=== PATIENT | male | born 1965 | race Two or more races ===

== ENCOUNTER 2021-11-30 03:48 | Inpatient (IN) | payer OTHER ==
[~2021-11-30] VITALS: Ht 165.1 cm; Wt 72.7 kg
[2021-11-30 04:10] LABS: COVID AG,FIA SOURCE NASOPHARYNGEAL
[2021-11-30 04:20] LABS: AMPHET/METH SCREEN,URINE POSITIVE (NEGATIVE); BARBITURATE SCREEN, URINE NEGATIVE (NEGATIVE); BENZODIAZEPINES SCREEN,URINE NEGATIVE (NEGATIVE); CANNABINOID SCREEN,URINE NEGATIVE (NEGATIVE); COCAINE SCREEN,URINE NEGATIVE (NEGATIVE); METHADONE SCREEN, URINE NEGATIVE (NEGATIVE); OPIATE SCREEN,URINE NEGATIVE (NEGATIVE)
[2021-11-30 04:23] LABS: PHENCYCLIDINE SCREEN,URINE NEGATIVE (NEGATIVE)
[2021-11-30] MEDS ORDERED: CloNIDine HCL 0.1 MG TABLET PO ONE (04:30)
[2021-11-30 04:38] LABS: EOSINOPHILS % (AUTO) 5.4 % (1.0-6.0); HEMATOCRIT 41.3 % (41-53); HEMOGLOBIN 13.8 g/dL (13.5-17.5); LYMPHOCYTES # (AUTO) 4.2 K/uL (1.0-4.8); LYMPHOCYTES % (AUTO) 40.3 % (22.0-44.0); MEAN CORPUSCULAR HGB CONC 33.3 G/dL (31.0-37.0); MEAN CORPUSCULAR VOLUME 81 fL (80-100); MONOCYTES # (AUTO) 0.5 K/uL (0.1-1.0); MONOCYTES % (AUTO) 4.5 % (2.0-9.0); NEUTROPHILS # (AUTO) 5.1 K/uL (1.8-7.7); NEUTROPHILS % (AUTO) 48.8 % (40.0-70.0); PLATELET COUNT (AUTO) 283 K/uL (150-450); RED BLOOD CELL COUNT(AUTO) 5.09 MIL/uL (4.50-5.90); RED CELL DISTRIBUTION WIDTH 14.7 % (11.5-14.5)
[2021-11-30] MEDS ORDERED: ACETAMINOPHEN 325 MG TABLET PO PRN (04:45)
[2021-11-30] MEDS ORDERED: ONDANSETRON HCL 4 MG/2 ML VIAL IVP PRN (04:45)
[2021-11-30] MEDS ORDERED: LORazepam 0.5 MG TABLET PO PRN (04:45)
[2021-11-30 04:48] LABS: ANION GAP 8 mmol/L (8-16); CALCIUM, TOTAL 9.1 mg/dL (8.8-10.5); CARBON DIOXIDE 32 mmol/L (22-29); CHLORIDE 105 mmol/L (98-107); CREATININE 1.08 mg/dL (0.60-1.30); GLUCOSE,RANDOM 91 mg/dL (70-110); POTASSIUM 4.4 mmol/L (3.5-5.1); SODIUM SERUM 145 mmol/L (136-145); UREA NITROGEN, BLOOD 16 mg/dL (7-18)
[2021-11-30 04:49] LABS: GLOMERULAR FILTR. RATE CALC > 60 mL/min (>60)
[2021-11-30 04:54] LABS: ALANINE AMINOTRANSFERASE 24 U/L (12-78); ALBUMIN 3.5 g/dL (3.4-5.0); ALKALINE PHOSPHATASE 76 U/L (46-116); ASPARTATE AMINOTRANSFERASE 14 U/L (15-37); BILIRUBIN,TOTAL 0.5 mg/dL (0.1-1.0); TOTAL PROTEIN, SERUM 7.1 g/dL (6.4-8.2)
[2021-11-30] MEDS ORDERED: HydrALAZINE HCL 20 MG/ML VIAL IVP ONE (06:00)
[2021-11-30 08:09] VITALS: BP 177/93
[2021-11-30] MEDS: HEPARIN SODIUM,PORCINE 5,000 UNITS/ML VIAL SQ SCH ×3 (09:12→23:45)
[2021-11-30] MEDS ORDERED: DICYCLOMINE HCL 10 MG CAPSULE PO PRN (15:00)
[2021-11-30] MEDS ORDERED: PROMETHAZINE HCL 25 MG TABLET PO PRN (15:00)
[2021-11-30] MEDS ORDERED: MAG HYDROX/AL HYDROX/SIMETH ES 30 ML SUSPENSION UDCUP PO PRN ×2 (15:00)
[2021-11-30] MEDS ORDERED: LOPERAMIDE HCL 2 MG/15 ML SUSPENSION UDCUP PO PRN (15:00)
[2021-11-30] MEDS ORDERED: IBUPROFEN 600 MG TABLET PO PRN ×2 (15:00)
[2021-11-30 15:39] VITALS: BP 160/99
[2021-11-30] MEDS: SODIUM CHLORIDE 0.45% 1,000 ML IV SCH (15:50)
[2021-11-30] MEDS: CloNIDine HCL 0.1 MG TABLET PO SCH ×2 (16:02→21:03)
[2021-11-30] MEDS: ACETAMINOPHEN 325 MG TABLET PO PRN (18:29)
[2021-11-30 20:32] VITALS: BP 171/114
[2021-11-30] MEDS: TraZODone HCL 50 MG TABLET PO PRN (21:03)
[2021-11-30] MEDS: LORazepam 1 MG TABLET PO PRN (21:08)
[2021-11-30] MEDS: BACLOFEN 10 MG TABLET PO PRN (21:09)
[2021-11-30] MEDS: HydrOXYzine PAMOATE 50 MG CAPSULE PO PRN (23:48)
[2021-12-01 02:01] VITALS: BP 156/105
[2021-12-01] MEDS: SODIUM CHLORIDE 0.45% 1,000 ML IV SCH ×2 (05:17→19:47)
[2021-12-01] MEDS: CloNIDine HCL 0.1 MG TABLET PO SCH ×4 (05:17→20:54)
[2021-12-01 05:22] VITALS: BP 166/112
[2021-12-01] MEDS: HEPARIN SODIUM,PORCINE 5,000 UNITS/ML VIAL SQ SCH ×2 (08:27→16:35)
[2021-12-01] MEDS: CloNIDine HCL 0.1 MG TABLET PO PRN (08:27)
[2021-12-01 08:31] VITALS: BP 150/112
[2021-12-01] MEDS: ACETAMINOPHEN 325 MG TABLET PO PRN ×2 (11:15→22:48)
[2021-12-01] MEDS: BACLOFEN 10 MG TABLET PO PRN ×2 (11:15→19:46)
[2021-12-01] MEDS: LORazepam 1 MG TABLET PO PRN ×2 (11:15→19:46)
[2021-12-01 12:05] VITALS: BP 141/97
[2021-12-01 16:16] VITALS: BP 146/94
[2021-12-01 20:00] VITALS: BP 152/98
[2021-12-01] MEDS: TraZODone HCL 50 MG TABLET PO PRN (20:54)
[2021-12-01] MEDS: HydrOXYzine PAMOATE 50 MG CAPSULE PO PRN (22:48)
[2021-12-02 04:30] VITALS: BP 159/101
[2021-12-02] MEDS: SODIUM CHLORIDE 0.45% 1,000 ML IV SCH (06:03)
[2021-12-02] MEDS: CloNIDine HCL 0.1 MG TABLET PO SCH ×2 (06:03→11:31)
[2021-12-02 08:00] VITALS: BP 159/100
[2021-12-02] MEDS: HEPARIN SODIUM,PORCINE 5,000 UNITS/ML VIAL SQ SCH ×2 (08:00)
[2021-12-02] MEDS: CloNIDine HCL 0.1 MG TABLET PO PRN ×2 (08:04→13:53)
[2021-12-02] MEDS: ACETAMINOPHEN 325 MG TABLET PO PRN ×2 (13:42→21:37)
[2021-12-02] MEDS: CloNIDine HCL 0.2 MG TABLET PO SCH ×2 (16:23→21:36)
[2021-12-02 16:41] VITALS: BP 144/86
[2021-12-02 19:40] VITALS: BP 146/88
[2021-12-02] MEDS: TraZODone HCL 50 MG TABLET PO PRN (21:40)
[2021-12-02] MEDS: HydrOXYzine PAMOATE 50 MG CAPSULE PO PRN (23:37)
[2021-12-03 04:25] VITALS: BP 145/94
[2021-12-03 07:38] VITALS: BP 147/84
[2021-12-03] MEDS: CloNIDine HCL 0.2 MG TABLET PO SCH (08:03)
[2021-12-03] MEDS ORDERED: CLON-353 PO (09:26)
== END 2021-12-03 13:55 | DRG 305 ==
LOC: EMS 03:56 → 6S 04:58
PROVIDERS: ADMIT Internal Medicine; ATTEND Internal Medicine
DX: I16.0 Hypertensive urgency (principal); F11.23 Opioid dependence with withdrawal; E87.3 Alkalosis; Z20.822 Contact with and (suspected) exposure to COVID-19; F15.10 Other stimulant abuse, uncomplicated; I10 Essential (primary) hypertension; J45.909 Unspecified asthma, uncomplicated; K59.00 Constipation, unspecified; F17.210 Nicotine dependence, cigarettes, uncomplicated; I25.2 Old myocardial infarction; Z71.6 Tobacco abuse counseling
CPT/HCPCS: 80053; 85025; 87081; 93005; 99285; G0480; J0360; J1644

== ENCOUNTER 2021-12-04 16:19 | Inpatient (IN) | payer OTHER ==
[~2021-12-04] VITALS: Ht 165.1 cm; Wt 69.3 kg
[~2021-12-04 16:19] MED LIST: CLON-353 PO
[2021-12-04 17:37] LABS: BASOPHILS % (AUTO) 1.2 % (0.0-2.0); EOSINOPHILS % (AUTO) 2.6 % (1.0-6.0); HEMATOCRIT 40.7 % (41-53); HEMOGLOBIN 13.7 g/dL (13.5-17.5); LYMPHOCYTES # (AUTO) 3.3 K/uL (1.0-4.8); LYMPHOCYTES % (AUTO) 34.9 % (22.0-44.0); MEAN CORPUSCULAR HEMOGLOBIN 27.1 pg (26.0-34.0); MEAN CORPUSCULAR HGB CONC 33.5 G/dL (31.0-37.0); MEAN CORPUSCULAR VOLUME 81 fL (80-100); MONOCYTES # (AUTO) 0.6 K/uL (0.1-1.0); MONOCYTES % (AUTO) 6.7 % (2.0-9.0); NEUTROPHILS # (AUTO) 5.2 K/uL (1.8-7.7); NEUTROPHILS % (AUTO) 54.6 % (40.0-70.0); PLATELET COUNT (AUTO) 300 K/uL (150-450); RED BLOOD CELL COUNT(AUTO) 5.04 MIL/uL (4.50-5.90); RED CELL DISTRIBUTION WIDTH 14.8 % (11.5-14.5)
[2021-12-04 17:48] LABS: ANION GAP 9 mmol/L (8-16); CALCIUM, TOTAL 8.8 mg/dL (8.8-10.5); CARBON DIOXIDE 30 mmol/L (22-29); CHLORIDE 105 mmol/L (98-107); CREATININE 1.12 mg/dL (0.60-1.30); GLUCOSE,RANDOM 85 mg/dL (70-110); POTASSIUM 4.3 mmol/L (3.5-5.1); SODIUM SERUM 144 mmol/L (136-145); UREA NITROGEN, BLOOD 25 mg/dL (7-18)
[2021-12-04 17:49] LABS: GLOMERULAR FILTR. RATE CALC > 60 mL/min (>60)
[2021-12-04 17:57] LABS: B-TYPE NATRIURETIC PEPTIDE 198 pg/mL (0-100)
[2021-12-04 18:13] LABS: ALANINE AMINOTRANSFERASE 38 U/L (12-78); ALBUMIN 3.5 g/dL (3.4-5.0); ALKALINE PHOSPHATASE 71 U/L (46-116); ASPARTATE AMINOTRANSFERASE 22 U/L (15-37); BILIRUBIN,TOTAL 0.3 mg/dL (0.1-1.0); CREATINE KINASE, TOTAL ONLY 104 U/L (39-308); TOTAL PROTEIN, SERUM 7.1 g/dL (6.4-8.2)
[2021-12-04 18:22] LABS: COVID AG,FIA SOURCE NASOPHARYNGEAL
[2021-12-04 19:37] LABS: APPEARANCE,URINE CLEAR (CLEAR); BILIRUBIN,URINE NEGATIVE (NEGATIVE); GLUCOSE, URINE (UA) 70-100 mg/dL (NEGATIVE); KETONES,URINE NEGATIVE (NEGATIVE); LEUKOCYTE ESTERASE ,URINE NEGATIVE (NEGATIVE); NITRATE,URINE NEGATIVE (NEGATIVE); OCCULT BLOOD,URINE NEGATIVE (NEGATIVE); PROTEIN,URINE 30-70 mg/dL (NEGATIVE); SPECIFIC GRAVITIY, URINE 1.035 (1.003-1.030); UROBILINOGEN,URINE <=1.0 mg/dL (<=1.0)
[2021-12-04] MEDS ORDERED: LABETALOL HCL 5 MG/ML 20 ML VIAL IVP ONE (19:45)
[2021-12-04 19:50] LABS: AMPHET/METH SCREEN,URINE POSITIVE (NEGATIVE); BARBITURATE SCREEN, URINE NEGATIVE (NEGATIVE); BENZODIAZEPINES SCREEN,URINE NEGATIVE (NEGATIVE); CANNABINOID SCREEN,URINE NEGATIVE (NEGATIVE); COCAINE SCREEN,URINE NEGATIVE (NEGATIVE); METHADONE SCREEN, URINE NEGATIVE (NEGATIVE); OPIATE SCREEN,URINE NEGATIVE (NEGATIVE)
[2021-12-04 19:57] LABS: PHENCYCLIDINE SCREEN,URINE NEGATIVE (NEGATIVE)
[2021-12-04 20:26] LABS: BACTERIA,URINE None Seen /HPF (None Seen); RBC,URINE None Seen /HPF (0-2); WBC,URINE None Seen /HPF (0-5)
[2021-12-04] MEDS ORDERED: 0.9% SODIUM CHLORIDE 10 ML SYRINGE IVP PRN (21:00)
[2021-12-04] MEDS ORDERED: ONDANSETRON HCL 4 MG/2 ML VIAL IVP PRN (21:00)
[2021-12-04] MEDS ORDERED: ACETAMINOPHEN 325 MG TABLET PO PRN (21:00)
[2021-12-04] MEDS ORDERED: METOCLOPRAMIDE HCL 5 MG/ML 2 ML VIAL IVP PRN (21:45)
[2021-12-04] MEDS ORDERED: ACETAMINOPHEN/CODEINE 300-15 MG TABLET PO PRN (21:45)
[2021-12-04] MEDS ORDERED: LORazepam 1 MG TABLET PO PRN (21:45)
[2021-12-04] MEDS ORDERED: DICYCLOMINE HCL 10 MG CAPSULE PO PRN (21:45)
[2021-12-04] MEDS ORDERED: LOPERAMIDE HCL 2 MG CAPSULE PO PRN (21:45)
[2021-12-04 23:52] VITALS: BP 134/80
[2021-12-05 05:45] VITALS: BP 122/85
[2021-12-05 08:00] VITALS: BP 142/95
[2021-12-05 08:01] LABS: BASOPHILS % (AUTO) 1.1 % (0.0-2.0); EOSINOPHILS % (AUTO) 2.9 % (1.0-6.0); HEMATOCRIT 38.7 % (41-53); MEAN CORPUSCULAR HEMOGLOBIN 27.2 pg (26.0-34.0); MEAN CORPUSCULAR HGB CONC 33.5 G/dL (31.0-37.0); MEAN CORPUSCULAR VOLUME 81 fL (80-100); MONOCYTES # (AUTO) 0.5 K/uL (0.1-1.0); MONOCYTES % (AUTO) 5.4 % (2.0-9.0); NEUTROPHILS # (AUTO) 4.8 K/uL (1.8-7.7); NEUTROPHILS % (AUTO) 49.6 % (40.0-70.0); PLATELET COUNT (AUTO) 280 K/uL (150-450); RED BLOOD CELL COUNT(AUTO) 4.77 MIL/uL (4.50-5.90); RED CELL DISTRIBUTION WIDTH 14.9 % (11.5-14.5)
[2021-12-05 08:16] LABS: ALANINE AMINOTRANSFERASE 36 U/L (12-78); ALBUMIN 3.1 g/dL (3.4-5.0); ALKALINE PHOSPHATASE 58 U/L (46-116); ANION GAP 8 mmol/L (8-16); ASPARTATE AMINOTRANSFERASE 20 U/L (15-37); BILIRUBIN,TOTAL 0.4 mg/dL (0.1-1.0); CALCIUM, TOTAL 8.6 mg/dL (8.8-10.5); CARBON DIOXIDE 28 mmol/L (22-29); CHLORIDE 107 mmol/L (98-107); CREATININE 1.19 mg/dL (0.60-1.30); GLUCOSE,RANDOM 89 mg/dL (70-110); POTASSIUM 4.5 mmol/L (3.5-5.1); SODIUM SERUM 143 mmol/L (136-145); TOTAL PROTEIN, SERUM 6.3 g/dL (6.4-8.2); UREA NITROGEN, BLOOD 24 mg/dL (7-18)
[2021-12-05 08:18] LABS: GLOMERULAR FILTR. RATE CALC > 60 mL/min (>60)
[2021-12-05] MEDS: CloNIDine HCL 0.2 MG TABLET PO SCH ×3 (08:34→21:37)
[2021-12-05 12:16] VITALS: BP 119/77
[2021-12-05 16:37] VITALS: BP 123/83
[2021-12-05 20:31] VITALS: BP 127/87
[2021-12-05] MEDS: TEMAZEPAM 15 MG CAPSULE PO SCH (21:37)
[2021-12-06] MEDS ORDERED: ZOLPIDEM TARTRATE 10 MG TABLET PO PRN (00:30)
[2021-12-06 06:41] VITALS: BP 156/99
[2021-12-06] MEDS: CloNIDine HCL 0.2 MG TABLET PO SCH (09:10)
[2021-12-06 09:16] VITALS: BP 144/92
[2021-12-06 11:17] VITALS: BP 142/94
[2021-12-06 15:50] VITALS: BP 155/98
[2021-12-06 19:35] VITALS: BP 153/98
[2021-12-06] MEDS: TEMAZEPAM 15 MG CAPSULE PO SCH (21:01)
[2021-12-06 23:23] VITALS: BP 154/101
[2021-12-07 05:31] VITALS: BP 152/93
[2021-12-07 08:37] VITALS: BP 152/93
[2021-12-07 12:00] VITALS: BP 142/92
[2021-12-07] MEDS ORDERED: NIFEdipine 30 MG ER TABLET PO ONE (12:18)
[2021-12-07 15:58] VITALS: BP 146/98
[2021-12-07] MEDS ORDERED: HydrALAZINE HCL 20 MG/ML VIAL IVP PRN (16:00)
[2021-12-07 19:38] VITALS: BP 138/92
[2021-12-07] MEDS: NIFEdipine 30 MG ER TABLET PO SCH (20:09)
[2021-12-07] MEDS: TEMAZEPAM 15 MG CAPSULE PO SCH (20:10)
[2021-12-07 23:43] VITALS: BP 155/94
[2021-12-08 04:20] VITALS: BP 136/89
[2021-12-08 08:31] VITALS: BP 153/94
[2021-12-08] MEDS: NIFEdipine 30 MG ER TABLET PO SCH (08:34)
[2021-12-08 12:38] VITALS: BP 134/90
[2021-12-08] MEDS ORDERED: CLON0.3T PO (12:55)
[2021-12-08] MEDS ORDERED: LOPE-232 PO (12:56)
== END 2021-12-08 13:55 | DRG 305 ==
LOC: EMS 16:20 → 5S 21:15
PROVIDERS: ADMIT Internal Medicine; ATTEND Internal Medicine
DX: I10 Essential (primary) hypertension (principal); F11.23 Opioid dependence with withdrawal; J45.909 Unspecified asthma, uncomplicated; Z20.822 Contact with and (suspected) exposure to COVID-19; F15.10 Other stimulant abuse, uncomplicated; F19.10 Other psychoactive substance abuse, uncomplicated; Z91.14 Patient's other noncompliance with medication regimen; Z87.891 Personal history of nicotine dependence
CPT/HCPCS: 71045; 80053; 81001; 81003; 82550; 83880; 84484; 85025; 87081; 93005; 99285; G0480; J0360; J3490; 36415-L1; 36415-TC